=== PATIENT | female | born 1995 | race Caucasian/White ===

== ENCOUNTER 2016-10-08 23:28 | Emergency (ER) | payer MEDICAID ==
[2016-10-08 23:31] VITALS: BP 152/93; PULSE 90; RESP 18; TEMP 99.3; O2SAT 100
[2016-10-09 01:19] LABS: AUTOMATED NEUTROPHIL # 4.2 TH/MM3 (1.8-7.7); BASOPHIL % 0.2 % (0.0-2.0); EOSINOPHIL # 0.2 TH/MM3 (0-0.4); HEMATOCRIT 41.1 % (35.0-46.0); HEMO FLAGS DIFF FINAL; LYMPH % 36.2 % (9.0-44.0); MEAN CORPUSCULAR HEMOGLOBIN 29.9 PG (27.0-34.0); MEAN CORPUSCULAR HGB CONC 33.2 % (32.0-36.0); MONO % 9.4 % (0.0-8.0); NEUT % 51.2 % (16.0-70.0); PLATELET COUNT 241 TH/MM3 (150-450); RED BLOOD COUNT 4.56 MIL/MM3 (4.00-5.30); RED CELL DISTRIBUTION WIDTH 12.9 % (11.6-17.2); WHITE BLOOD COUNT 8.2 TH/MM3 (4.0-11.0)
[2016-10-09 01:39] LABS: ANION GAP 9 MEQ/L (5-15); BICARBONATE 26.5 MEQ/L (21.0-32.0); BLOOD UREA NITROGEN 11 MG/DL (7-18); CHLORIDE 106 MEQ/L (98-107); GLOMERULAR FILTRATION RATE 115 ML/MIN (>89); POTASSIUM 3.6 MEQ/L (3.5-5.1); SODIUM (NA) 141 MEQ/L (136-145)
[2016-10-09] MEDS ORDERED: RELP20TA PO (02:13)
--- NOTE | 2016-10-09 02:13 | PD ---
HPI Chief Complaint: Chest Pain Time Seen by Provider: 02:01 Travel History International Travel<30 days: No Contact w/Intl Traveler<30days: No Traveled to known affect area: No History of Present Illness HPI 21 y/o female presents with sharp left-sided chest pain that is been constant over the past 2 weeks. She states sometimes when it happens she'll feel like she is having palpitations. She denies any family history of heart disease. Quality of pain is sharp. Severity is moderate. She denies specific modifying factors. She denies prior history of blood clots. She denies other concurrent complaints. [facility] Past Medical History Medical History: Denies Significant Hx ?: Not LMP: 09/13/16 Past Surgical History Tonsillectomy: Yes Social History Tobacco Use: No Allergies-Medications (Allergen,Severity, Reaction): Coded Allergies: No Known Allergies (Unverified , 10/09/16) Reported Meds & Prescriptions Reported Meds & Active Scripts Active Reported Relpax (Eletriptan) 20 Mg Tab 20 Mg PO ONCE PRN Review of Systems Except as stated in HPI: all other systems reviewed are Neg Physical Exam Narrative GENERAL: Well-nourished, well-developed patient. well appearing SKIN: Warm and dry. HEAD: Normocephalic and atraumatic. EYES: No injection or drainage. ENT: No nasal drainage noted. NECK: Supple, trachea midline. CARDIOVASCULAR: Regular rate and rhythm RESPIRATORY: Breath sounds equal bilaterally. No accessory muscle use. GASTROINTESTINAL: Abdomen soft, non-tender, nondistended. EXTREMITIES: No edema. NEUROLOGICAL: Awake and alert. Motor and sensory grossly within normal limits. Normal speech. Data Data Last Documented VS Vital Signs Date Time Temp Pulse Resp B/P Pulse Ox O2 Delivery O2 Flow Rate FiO2 10/08/16 23:31 99.3 90 18 152/93 100 Room Air Orders Electrocardiogram (10/09/16 ) Complete Blood Count With Diff (10/09/16 00:39) Basic Metabolic Panel (Bmp) (10/09/16 00:39) Troponin I (10/09/16 00:39) Chest, Pa & Lat (10/09/16 ) D-Dimer (10/09/16 02:01) Labs Laboratory Tests Test 10/09/16 10/09/16 00:52 02:30 White Blood Count 8.2 TH/MM3 Red Blood Count 4.56 MIL/MM3 Hemoglobin 13.6 GM/DL Hematocrit 41.1 % Mean Corpuscular Volume 90.0 FL Mean Corpuscular Hemoglobin 29.9 PG Mean Corpuscular Hemoglobin 33.2 % Concent Red Cell Distribution Width 12.9 % Platelet Count 241 TH/MM3 Mean Platelet Volume 8.8 FL Neutrophils (%) (Auto) 51.2 % Lymphocytes (%) (Auto) 36.2 % Monocytes (%) (Auto) 9.4 % Eosinophils (%) (Auto) 3.0 % Basophils (%) (Auto) 0.2 % Neutrophils # (Auto) 4.2 TH/MM3 Lymphocytes # (Auto) 3.0 TH/MM3 Monocytes # (Auto) 0.8 TH/MM3 Eosinophils # (Auto) 0.2 TH/MM3 Basophils # (Auto) 0.0 TH/MM3 CBC Comment DIFF FINAL Differential Comment Sodium Level 141 MEQ/L Potassium Level 3.6 MEQ/L Chloride Level 106 MEQ/L Carbon Dioxide Level 26.5 MEQ/L Anion Gap 9 MEQ/L Blood Urea Nitrogen 11 MG/DL Creatinine 0.65 MG/DL Estimat Glomerular Filtration 115 ML/MIN Rate Random Glucose 90 MG/DL Calcium Level 9.1 MG/DL Troponin I LESS THAN 0.02 NG/ML D-Dimer Quantitative (PE/DVT) 0.44 MG/L [facility] Medical Decision Making Medical Screen Exam Complete: Yes Emergency Medical Condition: Yes Medical Record Reviewed: Yes (pmh confirmed) Interpretation(s) CBC & BMP Diagram 10/09/16 00:52 Last 24 hours Impressions Chest X-Ray 10/09/16 0000 Signed Impressions: Service Date/Time: Sunday, October 09, 2016 02:16 - CONCLUSION: No acute disease. Jadiel Alvarado MD ddime is normal Differential Diagnosis Musculoskeletal, PE, gastritis, costochondritis Narrative Course Will add on d-dimer and chest x-ray to protocol from triage which was normal and if this is normal she can follow-up outpatient given duration and atypical symptoms ed workup no acute, Patient denies any new complaints, all questions answered. Patient knows that follow up is incumbent on them and to return to the emergency room immediately if new or worsening symptoms develop. Patient given strict return precautions, vitals reviewed and are normal, agrees to further workup as an outpatient. Diagnosis Primary Impression: Chest pain Qualified Code: R07.9 - Chest pain, unspecified type Patient Instructions: General Instructions Additional Instructions: set up a primary, alternate tylenol and motrin, return as needed Med/Other Pt SpecificInfo: No Change to Meds Disposition: 01 DISCHARGE HOME Condition: Stable Ayla Whitney MD Oct 09, 2016 02:13
--- NOTE | 2016-10-09 02:47 | RADRPT ---
EXAM DATE/TIME: 10/09/2016 02:16 [place] COMPARISON: No previous studies available for comparison. INDICATIONS : Chest pain. MEDICAL HISTORY : None. SURGICAL HISTORY : None. ENCOUNTER: Initial ACUITY: 1 day PAIN SCORE: 5/10 LOCATION: Bilateral chest FINDINGS: PA and lateral views of the chest demonstrate the lungs to be symmetrically aerated without evidence of mass, infiltrate or effusion. The cardiomediastinal contours are unremarkable. Osseous structure s are intact. CONCLUSION: No acute disease. Jadiel Alvarado MD on October 09, 2016 at 2:45 Board Certified Radiologist. This report was verified electronically.
--- NOTE | 2016-10-10 09:54 | EKG ---
Date Performed: 10/09/2016 Time Performed: 00:55:53 PTAGE: 21 years EKG: Sinus rhythm NORMAL ECG NO PREVIOUS TRACING DOCTOR: Jose Enrique Farah Interpretating Date/Time 10/10/2016 09:45:02
== END 2016-10-09 04:27 | disposition home or self-care (01) ==
LOC: NEPC 23:28
DX: R07.9 Chest pain, unspecified (principal)
CPT/HCPCS: 71020; 80048; 84484; 85025; 85379; 93005

== ENCOUNTER 2017-01-05 10:06 | Emergency (ER) | payer SELFPAY ==
[~2017-01-05] VITALS: Ht 165.1 cm; Wt 70.0 kg
[~2017-01-05 10:06] MED LIST: RELP20TA PO
[2017-01-05 10:07] VITALS: BP 122/78; PULSE 110; RESP 20; TEMP 99.2; O2SAT 98
[2017-01-05 10:19] VITALS: BP 119/77; PULSE 113; RESP 18; TEMP 100.2; O2SAT 98
[2017-01-05] MEDS ORDERED: SODIUM CHLOR 0.9% 1000 ML INJ 1,000 ML IV SCH (10:41)
[2017-01-05] MEDS ORDERED: ACETAMINOPHEN 325 MG TAB PO ONE (10:45)
[2017-01-05] MEDS ORDERED: ONDANSETRON HCL 4 MG/2 ML VIAL IVP ONE (10:45)
[2017-01-05] MEDS ORDERED: SODIUM CHLOR 0.9% 1000 ML INJ 1,000 ML IV ONE (10:45)
[2017-01-05] MEDS ORDERED: KETOROLAC TROMETHAMINE 30 MG/ML (IVP) VIAL IVP ONE (10:45)
[2017-01-05] MEDS ORDERED: SODIUM CHLORIDE 0.9% FLUSH 10 ML FLUSH IV FLUSH PRN (10:45)
--- NOTE | 2017-01-05 10:47 | PD ---
HPI Chief Complaint: Cold / Flu Symptoms Time Seen by Provider: 10:34 Travel History International Travel<30 days: No Contact w/Intl Traveler<30days: No Traveled to known affect area: No History of Present Illness HPI The patient is a 21-year-old female who presents to the emergency department for cough and cold symptoms. The patient states she developed chills yesterday followed by nausea and vomiting. The patient then developed a sore throat, anterior neck swelling, and diffuse body aches. The patient does note fevers with chills, without any sweats. The patient denies any history of previous mononucleosis. 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 She denies any recent international travel. She denies any dysuria, frequency, urgency, or abdominal pain. Symptoms are moderate, there are no current alleviating or exacerbating factors. Patient's last menstrual cycle was at the end of November, she denies . [facility] Past Medical History Diminished Hearing: No Immunizations Current: Yes Migraines: Yes ?: Not LMP: 12/24/16 : 0 Para: 0 Past Surgical History Ear Surgery: Yes (tubes in ears) Tonsillectomy: Yes Social History Alcohol Use: Yes (occassional) Tobacco Use: No Substance Use: No Allergies-Medications (Allergen,Severity, Reaction): Coded Allergies: No Known Allergies (Unverified , 10/09/16) Reported Meds & Prescriptions Reported Meds & Active Scripts Active Reported Relpax (Eletriptan) 20 Mg Tab 20 Mg PO ONCE PRN Review of Systems Except as stated in HPI: all other systems reviewed are Neg General / Constitutional: Positive: Fever, Chills HENT: Positive: Neck Pain, No: Sore Throat Cardiovascular: No: Chest Pain or Discomfort Respiratory: Positive: Cough, No: Shortness of Breath Gastrointestinal: Positive: Nausea, Vomiting, No: Abdominal Pain Genitourinary: No: Dysuria Musculoskeletal: Positive: Myalgias Physical Exam Narrative GENERAL: Awake, alert, pleasant 21-year-old female who appears her stated age and is in no acute respiratory distress. SKIN: Focused skin assessment warm/dry. HEAD: Atraumatic. Normocephalic. EYES: Pupils equal and round. No scleral icterus. No injection or drainage. ENT: No nasal bleeding or discharge. Mucous membranes pink and moist. No erythema or exudate noted. NECK: Trachea midline. No JVD. Bilateral anterior cervical lymphadenopathy mobile and tender. CARDIOVASCULAR: Regular, tachycardic with a heart rate of 105.. RESPIRATORY: No accessory muscle use. Clear to auscultation. Breath sounds equal bilaterally. GASTROINTESTINAL: Abdomen soft, non-tender, nondistended. No rebound tenderness. Negative Mccarty's. Negative McBurney's. Back: No CVA tenderness. MUSCULOSKELETAL: No obvious deformities. No clubbing. No cyanosis. No edema. NEUROLOGICAL: Awake and alert. No obvious cranial nerve deficits. Motor grossly within normal limits. Normal speech. PSYCHIATRIC: Appropriate mood and affect; insight and judgment normal. Data Data Last Documented VS Vital Signs Date Time Temp Pulse Resp B/P (MAP) Pulse Ox O2 Delivery O2 Flow Rate FiO2 01/05/17 11:11 98 Room Air 01/05/17 10:19 100.2 113 18 Orders Orders Urinalysis - C+S If Indicated (01/05/17 10:41) Iv Access Insert/Monitor (01/05/17 10:41) Ecg Monitoring (01/05/17 10:41) Oximetry (01/05/17 10:41) Ondansetron Inj (Zofran Inj) (01/05/17 10:45) Sodium Chlor 0.9% 1000 Ml Inj (Ns 1000 M (01/05/17 10:41) Sodium Chloride 0.9% Flush (Ns Flush) (01/05/17 10:45) Ketorolac Inj (Toradol Inj) (01/05/17 10:45) Acetaminophen (Tylenol) (01/05/17 10:45) Sodium Chlor 0.9% 1000 Ml Inj (Ns 1000 M (01/05/17 10:45) Monoscreen (01/05/17 10:41) Influenzae A/B Antigen (01/05/17 10:41) Labs Laboratory Tests Test 01/05/17 11:05 01/05/17 11:10 Urine Color YELLOW Urine Turbidity CLEAR Urine pH 7.5 Urine Specific [place] 1.023 Urine Protein TRACE mg/dL Urine Glucose (UA) NEG mg/dL Urine Ketones NEG mg/dL Urine Occult Blood NEG Urine Nitrite NEG Urine Bilirubin NEG Urine Urobilinogen LESS THAN 2.0 MG/DL Urine Leukocyte Esterase NEG Urine RBC 1 /hpf Urine WBC 1 /hpf Urine Squamous Epithelial Cells 1 /hpf Urine Mucus FEW /lpf Microscopic Urinalysis Comment CULT NOT INDICATED MDM Medical Decision Making Medical Screen Exam Complete: Yes Emergency Medical Condition: Yes Medical Record Reviewed: Yes Differential Diagnosis Differential diagnosis includes influenza, mononucleosis, viral syndrome, pyelonephritis, pneumonia, gastroenteritis, dehydration. Narrative Course IV was established, labs are drawn and sent, and the patient was placed on cardiac telemetry monitoring and continuous pulse oximetry monitoring. The patient was administered Toradol, Tylenol, Zofran, and 2 L of IV fluids. UA was sent to lab. Monoscreen was sent to lab. Influenza was sent to micro-. Influenza screen is negative. UA is negative. [place] screen was pending. The patient was reevaluated at 12 PM, her nausea had improved, she was able to keep down crackers and fluids. Mother was concerned about possible meningitis, it is a possibility, however, it would be most likely aseptic. The patient has no meningeal signs and has evidence of other viral syndromes including sore throat , cervical lymphadenopathy, myalgias, and nausea. I do not believe the patient warrants a lumbar puncture. She is advised to have repeat monoscreen in one week if symptoms persist. She will be provided a work excuse for 3 days. She is also advised to alternate Tylenol and Motrin for pain and fever. Diagnosis Primary Impression: Viral syndrome Patient Instructions: General Instructions Additional Instructions: Please provide a patient a copy of her UA results and influenza results at discharge. Alternate Tylenol and Motrin for pain and fever. Clear liquid diet and advance as tolerated. Zofran as directed. Work excuse for 3 days. Med/Other Pt SpecificInfo: Prescription(s) given Scripts Ondansetron Odt (Zofran Odt) 4 Mg Tab 4 MG SL Q6HR Y for Nausea/Vomiting, #10 TAB 0 Refills Prov: Marcelo Gavin MD 01/05/17 Disposition: 01 DISCHARGE HOME Condition: Stable Marcelo Gavin MD Jan 05, 2017 10:47
[2017-01-05 11:11] VITALS: O2SAT 98
[2017-01-05 11:32] LABS: BLOOD, URINE NEG (NEG); COMMENT (UR) CULT NOT INDICATED; CULTURE IF INDICATED CULT NOT INDICATED; GLUCOSE,URINE NEG (NEG); KETONE, URINE NEG (NEG); MUCUS URINE FEW /lpf (OCC); NITRITE,URINE NEG (NEG); PH, URINE 7.5 (5.0-8.5); SQUAMOUS EPITHELIAL CELL URINE 1 /hpf (0-5); URINE COLOR YELLOW (YELLW/STRAW)
[2017-01-05] MEDS ORDERED: ZOFR4TAB3 SL (12:09)
[2017-01-05 12:42] VITALS: RESP 17
== END 2017-01-05 12:40 | disposition home or self-care (01) ==
LOC: NEPD 10:06
DX: B34.9 Viral infection, unspecified (principal)
CPT/HCPCS: 81001; 86308; 87804; 96361; 96374; 96375; 99284; J1885; J2405; J7030